=== PATIENT | male | born 2000 | race Two or more races ===

== ENCOUNTER 2024-03-16 17:46 | Emergency (ER) | payer MEDICAID, SELFPAY ==
[2024-03-16 18:10] VITALS: BP 142/81; PULSE 85; RESP 19; TEMP 37.5; O2SAT 97; BMI 39.4
--- NOTE | 2024-03-16 18:22 | EDNOTE_ITS ---
ED Male Genitalurinary RME/HPI General Chief complaint: Urogenital-Male Stated complaint: PAIN ON TESTICLES X2 WEEKS Time Seen by Provider: 03/16/24 18:10 Source: patient Arrival date/time: 03/16/24 17:46 23-year-old male past medical history of epididymitis presents emergency department complaining of painful urination for 2 weeks. Patient reports he sexually active and has different sexual partners. Mode of arrival: ambulatory Limitations: no limitations Related Data Previous Rx's ?Medication ?Instructions ?Recorded amoxicillin 500 mg capsule 500 mg PO Q12H #14 caps 01/14/22 Allergies Allergy/AdvReac Type Severity Reaction Status Date / Time No Known Allergies Allergy Verified 03/16/24 17:49 Review of Systems Review of Systems Systems Reviewed: All systems reviewed, normal except as documented Constitutional Constitutional: Reports system reviewed and no additional complaints, except as documented, Denies body ache(s), Denies chills and Denies fever(s) Eyes Eyes: Reports system reviewed and no additional complaints, except as documented and Denies change in vision ENT Ears, Nose, Mouth, and Throat: Reports system reviewed and no additional complaints, except as documented, Denies disequilibrium, Denies dizziness, Denies sore throat and Denies vertigo Cardiovascular Cardiovascular: Reports system reviewed and no additional complaints, except as documented, Denies chest pain and Denies dyspnea Respiratory Respiratory: Reports system reviewed and no additional complaints, except as documented, Denies chest congestion, Denies cough and Denies dyspnea Gastrointestinal Gastrointestinal: Reports system reviewed and no additional complaints, except as documented, Denies abdominal pain, Denies nausea and Denies vomiting Genitourinary Genitourinary: Reports genital lesions and Reports other (Painful urination) Musculoskeletal Musculoskeletal: Reports system reviewed and no additional complaints, except as documented, Denies abnormal gait and Denies arthralgias Integumentary/Breasts Skin/Breast: Reports system reviewed and no additional complaints, except as documented, Denies erythema, Denies rash and Denies wounds Neurologic Neurologic: Reports system reviewed and no additional complaints, except as documented, Denies abnormal gait, Denies disequilibrium, Denies dizziness and Denies vertigo Past Medical History Past Medical History NEUROLOGIC: Negative Neurological Disorders CARDIAC: Negative Cardiac Disorders or Congestive Heart Failure RESPIRATORY: Negative Chronic Obstructive Pulmonary Disease (COPD) GASTROINTESTINAL: Negative Gastrointestinal Disorders GENITOURINARY: Negative Genitourinary Disorders or Renal Disease MUSCULOSKELETAL: Negative Musculoskeletal Disorders ENDOCRINE: Negative Endocrine Disorders, Diabetes Mellitus Type 1 or Diabetes Mellitus Type 2 HEMATOLOGIC: Negative Blood Disorders OTHER HISTORY: Negative Hospitalization, Autoimmune Disease, Down Syndrome, Developmental Delay, Shingles, Falls or Cancer Social History SMOKING STATUS: Current every day smoker ED Exam General Limitations: Present no limitations General appearance: Present alert and in no apparent distress Head Head exam: Present atraumatic Eye Eye exam: Present normal appearance, PERRL and EOMI ENT ENT exam: Present normal exam, normal oropharynx and mucous membranes moist Neck Neck exam: Present normal inspection, full ROM and trachea midline Chest Chest inspection: Present normal inspection and symmetric chest wall rise Respiratory Respiratory exam: Present normal lung sounds bilaterally Cardiovascular Cardiovascular exam: Present regular rate, normal rhythm and normal heart sounds Abdominal Exam Abdominal exam: Present soft and normal bowel sounds Expanded Exam exam: Present lesions image: 2 1. Several small firm painless lesions grayish in color. Extremities Exam Extremities exam: Present normal inspection and full ROM Back Exam Back exam: Present normal inspection and full ROM Neurological Exam Neurological exam: Present alert, oriented X3 and CN II-XII intact Psychiatric Psychiatric exam: Present normal affect and normal mood Skin Skin exam: Present warm, dry, intact and normal color Course Quality Measures none Orders Category Date Time Status Chlamydia/GC/TV - PCR Stat Lab 03/16/24 Ordered MHATP/TP-PA* Stat Lab 03/16/24 18:50 Received Syphilis Stat Lab 03/16/24 18:50 Completed Urinalysis, C/S if Indicated Stat Lab 03/16/24 18:50 Completed Urine Culture Stat Lab 03/16/24 18:50 Received PEN G GREY (Bicillin LA) [Bicillin La Inj] Med 03/16/24 19:44 Discontinued 2.4 mmu IM X1 ONE Vital Signs Vital signs: Vital Signs Temperature 99.5 F 03/16/24 18:10 Pulse Rate 85 03/16/24 18:10 Respiratory Rate 19 03/16/24 18:10 Blood Pressure 142/81 H 03/16/24 18:10 Pulse Oximetry (%) 97 03/16/24 18:10 Oxygen Delivery Method Room Air 03/16/24 18:10 97% room air within normal limits Urogenital - Male MDM Narrative MDM Narrative:: 23-year-old male past medical history of epididymitis presents emergency department complaining of painful urination for 2 weeks. Patient reports he sexually active and has different sexual partners. Syphilis serology positive. Patient treated with 2,400,000 units of penicillin G and instructed to follow-up with primary care provider in 2 to 3 days for results of STD screening. Patient appears nontoxic and is hemodynamically stable. Patient data External records reviewed:: [facility] previous records Clinical information provided by:: patient Social determinants that could affect healthcare access:: none Patient has the following chronic illnesses:: See chart How is presenting disease/condition affected by chronic disease/condition?: u neffected by Evaluation data The following diagnostics were reviewed and interpreted by me:: lab results Lab and/or radiology exams considered but not ordered:: Ordered Interpretation Summary: Interpreted by me Medications / Prescriptions Medications or Prescriptions considered but not ordered:: Ordered Medication administrations:: Medication Administration History Discontinued Medications Penicillin G Benzathine (Pen G Grey (Bicillin La) 1.2 Mmu/2 Ml Syrg) 2.4 mmu IM X1 ONE Stop: 03/16/24 19:45 Last Admin: 03/16/24 20:27 Dose: 2.4 mmu Documented By: KF Given Consultations Consultation(s) initiated? (list below): No Diagnosis Urogenital Male Differential Diagnosis: urinary tract infection, urethritis, epididymitis and genital herpes simplex Most likely diagnosis given after review of the tests above:: Syphilis Admission Indicated Admission indicated?: not indicated Admission Request Was there a request for admission?: No Disposition Plan Disposition Plan: Discharge Discharge Attestation Discharge Attestation: The patient and all family members were given an opportunity to ask questions and understood the discharge instructions. Discharge instructions specifically effects, indications for sooner follow up or return to the emergency department, and the expected course of current diagnosis. Patient condition: Stable Discharge Plan Plan Patient Disposition: HOME (Self Care) Disposition Comment: Stable Prescriptions/Referrals Prescriptions/Med Rec: No Action amoxicillin 500 mg capsule 500 mg PO Q12H Qty: 14 0RF Referrals: No Primary/Family,Physician [Primary Care Provider] - In 1 week Problem List Clinical Impression: Syphilis Patient/Caregiver Discharge Instructions Discharge Activity: activity as tolerated Education Materials: Understanding STIs, Syphilis Additional Instructions: He tested positive for syphilis and you were given 2,400,000 units of benzathine penicillin G IM once. Follow-up with primary care provider for results of STD panel and 3 to 4 days. Abstain from sexual activity for 7 days. All sexual partners should have serologic testing. You might develop fever and myalgias that are common after 24 hours of treatment. At follow-up appointment with primary care provider request HIV testing. Return to the emergency department for any worsening symptoms or as needed. Print Language: Moz[place]ican Stand Alone Forms: Stephanie Award Info., Patient Portal Info Letter PA/MATILDE Supervising Physician BRIJESH/MATILDE Supervising Physician: Dr. Herrera
[2024-03-16 18:58] LABS: Collection Type, Urine Clean Catch; RBC,Urine 0 /hpf (0-3)
[2024-03-16 19:11] LABS: Bacteria,Urine Rare; Bilirubin,Urine Negative (Negative); Blood,Urine Negative (Negative); Clarity,Urine Clear (Clear/Hazy); Color,Urine Lt-Yellow (Lt Yel-Yel); Culture Indicated,Urine Yes; Glucose, Urine Negative (Negative); Ketones,Urine Negative (Negative); Leukocyte Esterase,Urine Positive (Negative); Nitrite,Urine Negative (Negative); Protein,Urine Trace (Neg - Trace); Squamous Epithelial Cell,Urine < 1 /hpf (0-5); WBC,Urine 13 /hpf (0-5)
[2024-03-16 19:42] LABS: Syphilis Reactive (Nonreactive)
[2024-03-16 19:43] LABS: MHATP/TP-PA* See Sep Rpt
[2024-03-16] MEDS: PEN G BENZ (Bicillin LA) 1.2 MMU/2 ML SYRG 2.4 MMU IM (20:27)
== END 2024-03-16 20:34 | disposition home or self-care (01) ==
PROVIDERS: Emergency Provider Emergency Medicine
DX: A53.9 Syphilis, unspecified (principal)
CPT/HCPCS: 36415; 81001; 86780; 87086; 87491; 87591; 87661; 96372; 99283; J0561